=== PATIENT | female | born 1975 | race Caucasian/White ===

== ENCOUNTER 2017-03-12 11:24 | Emergency (ER) | payer OTHER ==
[~2017-03-12] VITALS: Ht 167.6 cm; Wt 97.5 kg
[~2017-03-12 11:24] MED LIST: ADVAIR 250-501 EACH INH; FLEXERIL10 MG PO; METFORMIN HCL500 M3 PO; MONTELUKAST SOD10 M1 PO; MOTRIN800 MG PO; PROAIR HFA8.5 GM INH
--- NOTE | 2017-03-12 14:09 | ED UPPER/LOWER EXTREMITY COMPL ---
History of Present Illness General Chief Complaint: Shoulder Injury Stated Complaint: L SHOULDER PAIN Source: patient Exam Limitations: no limitations Vital Signs & Intake/Output Vital Signs & Intake/Output Vital Signs Date Time Temp Pulse Resp B/P B/P Pulse O2 O2 Flow FiO2 Mean Ox Delivery Rate 03/12 1535 97.2 76 16 112/78 95 Room Air 03/12 1146 97.4 76 18 130/89 95 Room Air Allergies Coded Allergies: egg (Severe, anaphalactic 09/28/16) Reconcile Medications Albuterol Sulfate (Proair Hfa) 90 MCG HFA.AER.AD 2 PUF INH AD PRN ASTHMA ( Reported) Fluticasone/Salmeterol (Advair 250-50 Diskus) 250 MCG-50 MCG/DOSE BLST.W.DEV 1 PUF INH BID ASTHMA (Reported) Meloxicam (Mobic) 15 MG TABLET 1 TAB PO DAILY PAIN Metformin HCl 500 MG TABLET 1 TAB PO BID DM (Reported) Montelukast Sodium 10 MG TABLET 1 TAB PO DAILY ASTHMA (Reported) Oxycodone HCl/Acetaminophen (Percocet 5-325 MG Tablet) 5 MG-325 MG TABLET 1-2 TAB PO BID PAIN Triage Note: PT TO ED C/O LEFT SHOULDER BURNING PAIN "FOR A COUPLE MONTHS" HAS HAD XRAYS. "THEY CAN'T FIGURE OUT WHAT IT IS" Triage Nurses Notes Reviewed? yes Onset: Abrupt Duration: week(s):, constant, continues in ED Timing: recent history Severity: moderate, severe Pain/Injury Location: Left: Shoulder. No Modifying Factors: none : No Patient currently breastfeeds: No HPI: 42-year-old female comes into emergency room with complaints of shoulder pain has been going on for the past couple months. Pain is sharp. Worse with any range of motion. Continuous. Patient having difficulty lifting her arm due to significant pain. She comes in for further evaluation. She denies any falls or trauma that she can call. Denies any associated symptoms. Past History Travel History Traveled to [place] past 21 day No Medical History Any Pertinent Medical History? see below for history Neurological: NONE EENT: NONE Cardiovascular: NONE Respiratory: asthma Gastrointestinal: NONE Hepatic: NONE Renal: NONE Musculoskeletal: NONE Psychiatric: NONE Endocrine: diabetes Surgical History Surgical History: N Psychosocial History What is your primary language Romansh Tobacco Use: Never used ETOH Use: occasional use Illicit Drug Use: denies illicit drug use Family History Hx Contributory? No Review of Systems Review of Systems Constitutional: Reports: no symptoms. EENTM: Reports: no symptoms. Respiratory: Reports: no symptoms. Cardiovascular: Reports: no symptoms. Gastrointestinal/Abdominal: Reports: no symptoms. Genitourinary: Reports: no symptoms. Musculoskeletal: Reports: see HPI. Skin: Reports: no symptoms. Neurological/Psychological: Reports: no symptoms. Hematologic/Endocrine: Reports: no symptoms. Immunological: Reports: no symptoms. All Other Systems: Reviewed and Negative Physical Exam Physical Exam General Appearance: well developed/nourished, mild distress Head: atraumatic Eyes: Bilateral: normal appearance. 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 Discussed w/RAD: Radiology Read. Radiology Impression: PATIENT: CROW FRYE PRESENT AGE: 42 PATIENT ACCOUNT NO: [id number] : 75 LOCATION: [facility] ORDERING PHYSICIAN: Anselmo MENDOZA SERVICE DATE: 03/12/17 EXAM TYPE : RAD - XRY-SHOULDER COMPLETE-LEFT EXAMINATION: XR SHOULDER, LEFT CLINICAL INFORMATION: Left shoulder pain COMPARISON: None TECHNIQUE: Three views of the left shoulder. FINDINGS: Linear soft tissue calcification superior to the humeral head adjacent to the greater tuberosity near the rotator cuff tendon. This measures approximately 10 x 7 x 3 mm, consistent with calcific tendinosis. The glenohumeral joint normal. The acromioclavicular joint is normal. No focal bone lesion. IMPRESSION: Linear calcification superior to humeral head consistent with calcific tendinosis. 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 < Electronically signed in Other Vendor System> SIGNED BY: Dimitrios Vences MD 2030 Departure Departure Disposition: HOME OR SELF CARE Condition: Stable Clinical Impression Primary Impression: Tendinitis of left rotator cuff Referrals: Carmen FERNANDEZ,Amilcar Alfaro (PCP/Family) Additional Instructions: Take Percocet and meloxicam as prescribed. Follow-up with PCP provided. Return if any concerns worsening symptoms. He may require physical therapy and MRI of shoulder. Find an orthopedic doctor on the state insurance website for follow- up. Please go over all results of today's visit with your primary care doctor. Contact your primary care doctor to let them know you were here in the emergency room. There may be nonspecific findings which may not be related to your visit today here in the emergency room but may require further evaluation and chronic monitoring by your primary care doctor. If you had a laceration today the chance of foreign body always remains. You should follow-up with your primary care doctor for recheck in 3-5 days for a wound check. If you had an x-ray done there is a chance that a fracture could have been missed on initial read and you should follow-up with your primary care doctor for repeat x-rays if symptoms persist. If your blood pressure was elevated here in the emergency room please have rechecked by [facility] primary care doctor within the next 48. If you were prescribed a narcotic here in the emergency room or any type of controlled substances you're not allowed to drive while taking this medication or operate any type of heavy machinery. Narcotics can make you feel lightheaded dizziness nausea and can cause constipation. 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 Thank you for choosing [facility] emergency room. Please return to the emergency room immediately if you have any other concerns worsening of symptoms. Departure Forms: Customer Survey General Discharge Information Prescriptions: Current Visit Scripts Meloxicam (Mobic) 1 TAB PO DAILY #30 TAB Oxycodone HCl/Acetaminophen (Percocet 5-325 MG Tablet) 1-2 TAB PO BID #15 TAB Procedures Splinting Location: left shoulder Manual Alignment Performed: No Pre-Made Type: shoulder immobilizer Splint Applied By: splint applied by me Pre-Proc Neuro Vasc Exam: normal Post-Proc Neuro Vasc Exam: normal
--- NOTE | 2017-03-12 15:01 | RADIOLOGY REPORT ---
EXAMINATION: XR SHOULDER, LEFT CLINICAL INFORMATION: Left shoulder pain COMPARISON: None TECHNIQUE: Three views of the left shoulder. FINDINGS: Linear soft tissue calcification superior to the humeral head adjacent to the greater tuberosity near the rotator cuff tendon. This measures approximately 10 x 7 x 3 mm, consistent with calcific tendinosis. The glenohumeral joint normal. The acromioclavicular joint is normal. No focal bone lesion. IMPRESSION: Linear calcification superior to humeral head consistent with calcific tendinosis.
[2017-03-12] MEDS ORDERED: MOBIC15 M1 PO (15:34)
[2017-03-12] MEDS ORDERED: PERCOCET 5-3251 EACH PO (15:34)
[2017-03-12 15:35] VITALS: BP 112/78
== END 2017-03-12 15:42 ==
LOC: ERH 11:24
DX: M77.9 Enthesopathy, unspecified (principal)
CPT/HCPCS: 73030-LT